=== PATIENT | female | born 1980 | race Caucasian/White ===

== ENCOUNTER 2020-05-27 12:39 | Emergency (ER) | payer SELFPAY ==
[~2020-05-27] VITALS: Ht 154.9 cm; Wt 53.0 kg
--- NOTE | 2020-05-27 12:45 | NUR ---
PT MALKA FROM [facility], PT IS TRAVELING FROM [place] AND FELT ANXIOUS TODAY HAS BEEN OFF BIPOLAR MEDICATION X1 MONTH.
[2020-05-27] MEDS ORDERED: LORazepam 1MG TABLET PO ONE (13:00)
[2020-05-27] MEDS ORDERED: LORazepam 1MG TABLET ONE (13:01)
--- NOTE | 2020-05-27 14:48 | NUR ---
PT RESTING ON JANNETTE, VSS. WAITING FOR FOR RIDE.
--- NOTE | 2020-05-27 15:56 | NUR ---
PT RESTING COMFORTABLY ON GURNEY IN NAD, VSS. PT SPOKE WITH HER OVER THE PHONE, HE IS ON HIS WAY TO HOSPITAL.
[2020-05-27 16:29] VITALS: BP 102/58
--- NOTE | 2020-05-27 16:30 | NUR ---
HERE TO SENIOR WEB ARCHITECT PT FOR SAFE DC.
== END 2020-05-27 16:32 | disposition home or self-care (01) ==
LOC: ED 14:09
DX: F41.1 Generalized anxiety disorder (principal); R06.4 Hyperventilation; F23 Brief psychotic disorder
CPT/HCPCS: 99285